=== PATIENT | female | born 1940 | race Caucasian/White ===

== ENCOUNTER 2021-07-24 07:50 | Outpatient (CLI) | payer MEDICARE | END 2021-07-24 07:51 | disposition home or self-care (01) | LOC: CSHMAMMO 07:50 | PROVIDERS: ATTEND Internal Medicine | DX: Z12.31 Encounter for screening mammogram for malignant neoplasm of breast (principal); Z85.828 Personal history of other malignant neoplasm of skin | CPT/HCPCS: 77063; 77067 ==

== ENCOUNTER 2021-12-14 10:15 | Outpatient (CLI) | payer MEDICARE | END 2021-12-14 10:16 | disposition home or self-care (01) | LOC: CSHMAMMO 10:15 | PROVIDERS: ATTEND Internal Medicine | DX: Z13.820 Encounter for screening for osteoporosis (principal); M85.88 Other specified disorders of bone density and structure, other site; Z78.0 Asymptomatic menopausal state | CPT/HCPCS: 77080 ==

== ENCOUNTER 2022-07-26 09:26 | Outpatient (CLI) | payer MEDICARE | END 2022-07-26 09:27 | disposition home or self-care (01) | LOC: CSHMAMMO 09:26 | PROVIDERS: ATTEND Internal Medicine | DX: Z12.31 Encounter for screening mammogram for malignant neoplasm of breast (principal); Z85.828 Personal history of other malignant neoplasm of skin | CPT/HCPCS: 77063; 77067 ==

== ENCOUNTER 2023-01-31 09:01 | Outpatient (CLI) | payer MEDICARE | END 2023-01-31 09:02 | disposition home or self-care (01) | LOC: CSHRAD 09:01 | PROVIDERS: ATTEND Internal Medicine | DX: R07.89 Other chest pain (principal); R91.1 Solitary pulmonary nodule | CPT/HCPCS: 71046 ==

== ENCOUNTER 2023-02-05 11:56 | Outpatient (CLI) | payer MEDICARE | END 2023-02-05 11:57 | disposition home or self-care (01) | LOC: CSHCT 11:56 | PROVIDERS: ATTEND Internal Medicine | DX: R91.1 Solitary pulmonary nodule (principal); E04.1 Nontoxic single thyroid nodule | CPT/HCPCS: 71250 ==

== ENCOUNTER 2023-02-19 12:00 | Outpatient (CLI) | payer MEDICARE | END 2023-02-19 12:01 | disposition home or self-care (01) | LOC: CSHULT 12:00 | PROVIDERS: ATTEND Internal Medicine | DX: E04.1 Nontoxic single thyroid nodule (principal); E04.2 Nontoxic multinodular goiter | CPT/HCPCS: 76536 ==

== ENCOUNTER 2023-03-14 10:31 | Outpatient (CLI) | payer MEDICARE | END 2023-03-14 10:32 | disposition home or self-care (01) | LOC: CSHRAD 10:31 | PROVIDERS: ATTEND Otolaryngology Plastic Surgery within the Head & Neck | DX: R13.10 Dysphagia, unspecified (principal); K22.4 Dyskinesia of esophagus | CPT/HCPCS: 74220 ==

== ENCOUNTER 2023-08-29 08:44 | Outpatient (CLI) | payer MEDICARE | END 2023-08-29 08:45 | disposition home or self-care (01) | LOC: CSHMAMMO 08:44 | PROVIDERS: ATTEND Internal Medicine | DX: Z12.31 Encounter for screening mammogram for malignant neoplasm of breast (principal); Z85.828 Personal history of other malignant neoplasm of skin | CPT/HCPCS: 77063; 77067 ==

== ENCOUNTER 2023-09-05 08:31 | Outpatient (CLI) | payer MEDICARE | END 2023-09-05 08:32 | disposition home or self-care (01) | LOC: CSHMRI 08:31 | PROVIDERS: ATTEND Internal Medicine | DX: M47.26 Other spondylosis with radiculopathy, lumbar region (principal) | CPT/HCPCS: 72148 ==